=== PATIENT | male | born 1955 | race Caucasian/White ===

== ENCOUNTER → 2016-06-09 | Outpatient (CLI) | payer MEDICARE ==
[~2016-06-09] MED LIST: ADVIL200 MG PO; ALLOPURINOL1 POW; AMOXICILLIN500 MG PO; ANAPROX DS550 MG PO; AZULFIDINE500 MG PO; BIAXIN500 MG PO; BLOOD PRESSURE MED; CELEXA20 MG PO; CLARITIN10 MG PO; FOLIC ACID1 MG PO; IMITREX; IMITREX NAS; IMITREX100 MG PO; LEVOFLOXACIN500 MG PO; LOPURIN100 MG PO; LYRICA50 MG PO; MOTRIN800 MG PO; Meclizine25 MG PO; OMEPRAZOLE20 M2 PO; PERCOCET 325 MG1 TA7 PO; PHENERGAN25 M1 PO; PRESERVISION1 SGL PO; PRILOSEC20 MG PO; PROMETHAZINE25 M1 PO; PROVENTIL0.09 MG/AC IH; ROBAXIN750 MG PO; SUMATRIPTAN SU100 MG PO; TOPAMAX25 MG PO; TYLENOL325 M1 PO; VERAPAMIL; VERELAN SR 240240 MG PO; VICODIN 5/500 505 MG PO; VICODIN ES 7501 TAB PO; ZANTAC150 MG PO; ZESTRIL,PRINIVI10 MG PO; ZOFRAN ODT4 MG SL
== END | disposition home or self-care (01) ==
LOC: LAB 15:34
DX: J44.1 Chronic obstructive pulmonary disease with (acute) exacerbation (principal)

== ENCOUNTER 2021-12-09 23:53 | Emergency (ER) | payer MEDICARE ==
[~2021-12-09] VITALS: Wt 63.5 kg
[2021-12-10 00:23] LABS: BASO # 0.1 10*3/uL (0.0-0.1); BASO % 0.6 % (0.0-1.0); EOS # 0.4 10*3/uL (0.0-0.4); EOS % 4.1 % (1.0-4.0); HEMATOCRIT 42.9 % (42.0-52.0); LYMPH # 3.9 10*3/uL (1.3-4.4); LYMPH % 35.9 % (27.0-41.0); MEAN CELL VOLUME 86.1 fl (80.0-94.0); MEAN CORPUSCULAR HGB 30.9 pg (27.0-31.0); MEAN CORPUSCULAR HGB CONC 35.9 g/dl (33.0-37.0); MEAN PLATELET VOLUME 9.6 fl (9.6-12.3); MONO % 9.6 % (3.0-9.0); NEUT # 5.3 10*3/uL (2.3-7.9); NEUT % 49.5 % (47.0-73.0); PLATELET COUNT AUTOMATED 270 10*3/uL (130-400); RED BLOOD COUNT 4.98 10*6/uL (4.50-5.90); RED CELL DISTRI WIDTH 11.8 % (0-14.5); WHITE BLOOD COUNT 10.7 10*3/uL (4.8-10.8)
[2021-12-10 00:48] LABS: ALKALINE PHOSPHATASE 108 U/L (45-117); BUN 10 mg/dl (7-24); CHLORIDE 86 mmol/L (98-107); CREATININE 0.98 mg/dL (0.70-1.30); LIPASE 88 U/L (73-393); POTASSIUM 3.4 mmol/L (3.5-5.1); SGOT/AST 17 IU/L (3-35); SGPT/ALT 22 U/L (12-78); SODIUM 122 mmol/L (136-145); TOTAL PROTEIN 7.1 gm/dL (6.4-8.2)
== END 2021-12-10 04:34 | disposition home or self-care (01) ==
LOC: ED 23:53
PROVIDERS: Internal Medicine
DX: K21.9 Gastro-esophageal reflux disease without esophagitis (principal); E87.6 Hypokalemia; E87.1 Hypo-osmolality and hyponatremia; Z79.899 Other long term (current) drug therapy

== ENCOUNTER 2023-03-27 09:48 | Emergency (ER) | payer MEDICARE ==
[~2023-03-27] VITALS: Ht 165.1 cm; Wt 64.0 kg
[2023-03-27 11:03] LABS: BASO % 0.2 % (0.0-1.0); EOS % 0.2 % (1.0-4.0); HEMATOCRIT 39.1 % (42.0-52.0); LYMPH # 0.9 10*3/uL (1.3-4.4); LYMPH % 16.7 % (27.0-41.0); MEAN CELL VOLUME 88.3 fl (80.0-94.0); MEAN CORPUSCULAR HGB 30.5 pg (27.0-31.0); MEAN CORPUSCULAR HGB CONC 34.5 g/dl (33.0-37.0); MONO # 0.8 10*3/uL (0.1-1.0); MONO % 15.6 % (3.0-9.0); NEUT # 3.6 10*3/uL (2.3-7.9); NEUT % 66.7 % (47.0-73.0); PLATELET COUNT AUTOMATED 175 10*3/uL (130-400); RED BLOOD COUNT 4.43 10*6/uL (4.50-5.90); RED CELL DISTRI WIDTH 11.9 % (0-14.5); WHITE BLOOD COUNT 5.3 10*3/uL (4.8-10.8)
[2023-03-27 11:17] LABS: ACT PARTIAL THROMBO TIME 30.3 SECONDS (20.0-32.1)
[2023-03-27 11:25] LABS: ALKALINE PHOSPHATASE 89 U/L (46-116); BUN 7 mg/dl (9-23); CHLORIDE 93 mmol/L (98-107); LIPASE 52 U/L (12-53); POTASSIUM 3.4 mmol/L (3.4-5.1); SGPT/ALT 21 U/L (5-49); TOTAL PROTEIN 6.1 gm/dL (6.0-8.0)
[2023-03-27] MEDS ORDERED: MECLIZINE HCL25 M2 PO (12:42)
[2023-03-27] MEDS ORDERED: ONDANSETRON4 MG SL (12:42)
== END 2023-03-27 12:47 | disposition home or self-care (01) ==
LOC: ED 09:48
PROVIDERS: Emergency Medicine
DX: R42 Dizziness and giddiness (principal); R11.0 Nausea; I10 Essential (primary) hypertension; J45.909 Unspecified asthma, uncomplicated; K21.9 Gastro-esophageal reflux disease without esophagitis; M10.9 Gout, unspecified; R10.2 Pelvic and perineal pain; Z98.890 Other specified postprocedural states

== ENCOUNTER 2023-05-25 15:40 | Emergency (ER) | payer MEDICARE ==
[~2023-05-25] VITALS: Ht 165.1 cm; Wt 62.6 kg
[~2023-05-25 15:40] MED LIST changes: +MECLIZINE HCL25 M2 PO; +ONDANSETRON4 MG SL
[2023-05-25] MEDS ORDERED: Ondansetron Hydrochloride 4 MG/2 ML VIAL IV ONE (16:05)
[2023-05-25] MEDS ORDERED: Meclizine Hydrochloride 25 MG TAB PO ONE ×2 (16:05→18:30)
[2023-05-25] MEDS ORDERED: SODIUM CHLORIDE 0.9% 1,000 ML IV ONE (16:05)
[2023-05-25 16:23] LABS: BASO # 0.1 10*3/uL (0.0-0.1); BASO % 0.3 % (0.0-1.0); EOS # 0.1 10*3/uL (0.0-0.4); EOS % 0.8 % (1.0-4.0); HEMATOCRIT 42.7 % (42.0-52.0); LYMPH % 20.6 % (27.0-41.0); MEAN CELL VOLUME 89.3 fl (80.0-94.0); MEAN CORPUSCULAR HGB 30.8 pg (27.0-31.0); MEAN CORPUSCULAR HGB CONC 34.4 g/dl (33.0-37.0); MEAN PLATELET VOLUME 9.3 fl (9.6-12.3); MONO # 1.1 10*3/uL (0.1-1.0); MONO % 7.8 % (3.0-9.0); NEUT # 10.3 10*3/uL (2.3-7.9); NEUT % 70.2 % (47.0-73.0); PLATELET COUNT AUTOMATED 300 10*3/uL (130-400); RED BLOOD COUNT 4.78 10*6/uL (4.50-5.90); RED CELL DISTRI WIDTH 12.3 % (0-14.5); WHITE BLOOD COUNT 14.7 10*3/uL (4.8-10.8)
[2023-05-25 16:42] LABS: ACT PARTIAL THROMBO TIME 26.5 SECONDS (20.0-32.1); ALKALINE PHOSPHATASE 93 U/L (46-116); BUN 12 mg/dl (9-23); CHLORIDE 92 mmol/L (98-107); LIPASE 31 U/L (12-53); POTASSIUM 3.2 mmol/L (3.4-5.1); SGPT/ALT 15 U/L (5-49); TOTAL PROTEIN 6.9 gm/dL (6.0-8.0)
== END 2023-05-25 18:52 | disposition home or self-care (01) ==
LOC: ED 15:40
PROVIDERS: Emergency Medicine
DX: R42 Dizziness and giddiness (principal); R10.9 Unspecified abdominal pain; R00.2 Palpitations; R51.9 Headache, unspecified; Z79.899 Other long term (current) drug therapy; Z98.890 Other specified postprocedural states

== ENCOUNTER → 2023-06-29 | Outpatient (CLI) | payer MEDICARE ==
[~2023-06-29] MED LIST changes: +BUSPIRONE10 MG PO; +FLUOXETINE40 MG PO; +Regadenoson 0.4 MG/5 ML SYR IV ONE; +Technetium Tc 99M Tetrofosmi 0.23 MG KIT IJ SCH; +VERAPAMIL SR240 M1 PO; +ZESTRIL20 MG PO
== END | disposition home or self-care (01) ==
LOC: CARD 06-15 08:00
PROVIDERS: ATTEND Internal Medicine Cardiovascular Disease
DX: I10 Essential (primary) hypertension (principal); F17.200 Nicotine dependence, unspecified, uncomplicated; I49.3 Ventricular premature depolarization

== ENCOUNTER 2023-07-01 18:43 | Emergency (ER) | payer MEDICARE ==
[~2023-07-01] VITALS: Ht 165.1 cm; Wt 63.5 kg
[~2023-07-01 18:43] MED LIST changes: -Regadenoson 0.4 MG/5 ML SYR IV ONE; -Technetium Tc 99M Tetrofosmi 0.23 MG KIT IJ SCH; -VERAPAMIL SR240 M1 PO; -ZESTRIL20 MG PO
[2023-07-01] MEDS ORDERED: VERAPAMIL SR240 M1 PO (18:51)
[2023-07-01] MEDS ORDERED: ZESTRIL20 MG PO (18:52)
[2023-07-01 19:28] LABS: BASO # 0.1 10*3/uL (0.0-0.1); BASO % 0.7 % (0.0-1.0); EOS # 0.3 10*3/uL (0.0-0.4); LYMPH # 2.3 10*3/uL (1.3-4.4); LYMPH % 22.2 % (27.0-41.0); MEAN CELL VOLUME 91.9 fl (80.0-94.0); MEAN CORPUSCULAR HGB 30.4 pg (27.0-31.0); MEAN CORPUSCULAR HGB CONC 33.1 g/dl (33.0-37.0); MEAN PLATELET VOLUME 9.5 fl (9.6-12.3); MONO # 0.8 10*3/uL (0.1-1.0); MONO % 8.1 % (3.0-9.0); NEUT # 6.8 10*3/uL (2.3-7.9); NEUT % 65.7 % (47.0-73.0); PLATELET COUNT AUTOMATED 260 10*3/uL (130-400); RED BLOOD COUNT 4.57 10*6/uL (4.50-5.90); RED CELL DISTRI WIDTH 12.6 % (0-14.5); WHITE BLOOD COUNT 10.3 10*3/uL (4.8-10.8)
[2023-07-01 19:42] LABS: BILIRUBIN Negative (Negative); BLOOD Trace-Lysed (Negative); CLARITY Clear (Clear); COLOR Yellow (Yellow); GLUCOSE Negative (Negative); KETONE Negative (Negative); LEUKO ESTERASE Negative (Negative); NITRITE Negative (Negative); UROBILINOGEN 0.2 E.U./dl (0.0-1.0)
[2023-07-01 19:53] LABS: ALKALINE PHOSPHATASE 90 U/L (46-116); BUN 9 mg/dl (9-23); CHLORIDE 102 mmol/L (98-107); POTASSIUM 3.8 mmol/L (3.4-5.1); SGPT/ALT 24 U/L (5-49); TOTAL PROTEIN 6.5 gm/dL (6.0-8.0)
[2023-07-01 19:56] LABS: WBC 0-2 wbc/hpf (0-5)
== END 2023-07-01 20:58 | disposition home or self-care (01) ==
LOC: ED 18:43
PROVIDERS: Physician Assistant Medical
DX: R42 Dizziness and giddiness (principal); T43.225A Adverse effect of selective serotonin reuptake inhibitors, initial encounter; I10 Essential (primary) hypertension; F32.A Depression, unspecified; F41.9 Anxiety disorder, unspecified; F17.200 Nicotine dependence, unspecified, uncomplicated; Z79.899 Other long term (current) drug therapy; Z98.890 Other specified postprocedural states; Y92.89 Other specified places as the place of occurrence of the external cause

== ENCOUNTER → 2023-07-26 | Outpatient (CLI) | payer MEDICARE ==
[~2023-07-26] MED LIST changes: +VERAPAMIL SR240 M1 PO; +ZESTRIL20 MG PO
== END | disposition home or self-care (01) ==
LOC: CARD 01:29
PROVIDERS: ATTEND Internal Medicine Cardiovascular Disease
DX: I35.8 Other nonrheumatic aortic valve disorders (principal); R00.2 Palpitations; R42 Dizziness and giddiness; I10 Essential (primary) hypertension

== ENCOUNTER 2024-10-08 15:56 | Emergency (ER) | payer MEDICARE ==
[~2024-10-08] VITALS: Wt 68.0 kg
[2024-10-08] MEDS ORDERED: Ondansetron Hydrochloride 4 MG/2 ML VIAL IV ONE (16:05)
[2024-10-08] MEDS ORDERED: SODIUM CHLORIDE 0.9% 1,000 ML IV ONE (16:05)
[2024-10-08 16:22] LABS: MEAN CELL VOLUME 91.7 fl (80.0-94.0); MEAN CORPUSCULAR HGB 28.9 pg (27.0-31.0); MEAN PLATELET VOLUME 9.8 fl (9.6-12.3); NUCLEATED RED BLOOD CELL 0.0 % (0.0-0.0); NUCLEATED RED BLOOD CELL 0.0 10*3/uL (0.0-0.0); PLATELET COUNT AUTOMATED 330 10*3/uL (130-400); RED CELL DISTRI WIDTH 11.7 % (0-14.5)
[2024-10-08 16:24] LABS: MANUAL DIFF REFLEX YES
[2024-10-08 16:44] LABS: BUN 6 mg/dl (9-23); SGPT/ALT 15 U/L (5-49)
[2024-10-08 16:45] LABS: PLATELET SUFFICIENCY NORMAL (NORMAL)
[2024-10-08] MEDS ORDERED: POTASSIUM CHLORIDE 20 MEQ TAB PO ONE (19:15)
== END 2024-10-08 19:25 | disposition home or self-care (01) ==
LOC: ED 15:56
PROVIDERS: Internal Medicine
DX: T67.5XXA Heat exhaustion, unspecified, initial encounter (principal); R11.2 Nausea with vomiting, unspecified; R53.1 Weakness; Z79.899 Other long term (current) drug therapy; Z98.890 Other specified postprocedural states; X32.XXXA Exposure to sunlight, initial encounter; Y93.89 Activity, other specified; Y92.89 Other specified places as the place of occurrence of the external cause; Y99.8 Other external cause status